=== PATIENT | male | born 1970 ===

== ENCOUNTER → 2018-06-26 19:41 | Outpatient (REF) | payer SELFPAY ==
[2018-06-26 21:22] LABS: Urine N gonorrhoeae NOT DETECTED
[2018-06-26 21:44] LABS: Urine Chlamydia NOT DETECTED
== END ==
LOC: LAB 19:41
PROVIDERS: Visit Provider Nurse Practitioner Acute Care
DX: R51 Headache (principal); R30.0 Dysuria
CPT/HCPCS: 87491; 87591